=== PATIENT | female | born 1980 | race Caucasian/White ===

== ENCOUNTER 2017-09-12 09:47 | Day surgery (SDC) | payer BC ==
[~2017-09-12 09:47] MED LIST: Lactated Ringers 1,000 ML IV SCH
--- NOTE | 2017-09-12 10:04 | PCM.PREANE ---
Preanesthetic Assessment - Procedure Proposed Procedure: D & C - Anesthesia/Transfusion/Family Hx Anesthesia History: No Prior Anesthesia Family History of Anesthesia Reaction: No Transfusion History: No Prior Transfusion(s) Intubation History: Unknown - Review of Systems General: Other (obesity) Pulmonary: Other (smoker until 2012) Cardiovascular: Other Gastrointestinal: No Symptoms Neurological: No Symptoms Other: Reports: None - Physical Assessment NPO Status Date: 09/11/17 NPO Status Time: 23:00 Height: 5 ft 8 in Weight: 267 lb ASA Class: 2 Mental Status: Alert & Oriented x3 Airway Class: Mallampati = 2 Dentition: Reports: Normal Dentition Thyro-Mental Finger Breadths: 4 Mouth Opening Finger Breadths: 3 ROM/Head Extension: Full Lungs: Clear to Auscultation, Normal Respiratory Effort Cardiovascular: Regular Rate, Regular Rhythm, No Murmurs - Allergies Allergies/Adverse Reactions: Allergies Allergy/AdvReac Type Severity Reaction Status Date / Time No Known Allergies Allergy Verified 07/26/14 17:32 - Blood Blood Available: No Product(s) Available: None - Anesthesia Plan Pre-Op Medication Ordered: None - Acknowledgements Anesthesia Type Planned: General Anesthesia (LMA vs OETT) Pt an Appropriate Candidate for the Planned Anesthesia: Yes Alternatives and Risks of Anesthesia Discussed w Pt/Guardian: Yes Pt/Guardian Understands and Agrees with Anesthesia Plan: Yes PreAnesthesia Questionnaire - Past Health History Medical/Surgical History: Denies Medical/Surgical History HEENT History: Reports: Other (See Below) Other HEENT History: wears glasses Genitourinary History: Reports: Renal Calculus Other Genitourinary History: UTI 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 [No Known Home Meds] 09/11/17 [History] - CURRENT (IN HOUSE) MEDS Current Meds: Current Medications Lactated Ringer's (Ringers, Lactated) 1,000 mls @ 125 mls/hr IV ASDIRECTED [facility]
[2017-09-12] MEDS ORDERED: Sodium Chloride 0.9% 2.5 ML Syringe FLUSH PRN (10:35)
[2017-09-12] MEDS ORDERED: Sodium Chloride 0.9% 10 ML Syringe FLUSH PRN (10:35)
[2017-09-12] MEDS ORDERED: Propofol 200 MG/20 ML SDV ONE (11:24)
[2017-09-12] MEDS ORDERED: Scopolamine 1.5 MG Transdermal Patch TRDERM PRN (11:30)
[2017-09-12] MEDS ORDERED: diphenhydrAMINE 50 MG/ML SDV ONE (12:34)
[2017-09-12] MEDS ORDERED: Lidocaine 2% 5 ML SDV ONE (12:37)
[2017-09-12] MEDS ORDERED: Midazolam 1 MG/ML 2 ML SDV ONE (12:37)
[2017-09-12] MEDS ORDERED: Ondansetron 4 MG/2 ML SDV ONE (12:37)
[2017-09-12] MEDS ORDERED: fentaNYL 100 MCG/2 ML SDV ONE (12:37)
[2017-09-12] MEDS ORDERED: fentaNYL 100 MCG/2 ML SDV IVPUSH PRN (12:52)
[2017-09-12] MEDS ORDERED: Ketorolac 30 MG/ML SDV ONE (13:00)
[2017-09-12] MEDS ORDERED: Acetaminophen/oxyCODONE 325-5 MG Tab PO PRN (13:13)
--- NOTE | 2017-09-12 13:13 | PCM.OPNOTE ---
- General Post-Op/Procedure Note Date of Surgery/Procedure: 09/12/17 Operative Procedure(s): Suction dilation and curettage Findings: 7 weeks sized uterus, anteverted, mobile, no adnexal masses. Small amount of POC Pre Op Diagnosis: Missed Post-Op Diagnosis: Same Anesthesia Technique: General ET Tube Primary Surgeon: Alee Benavidez Pathology: Products of conception EBL in mLs: 50 Complications: None Condition: Good
--- NOTE | 2017-09-12 13:17 | PCM.POSTAN ---
POST ANESTHESIA ASSESSMENT - MENTAL STATUS Mental Status: Alert, Oriented - RESPIRATORY Respiratory Status: Respiratory Rate WNL, Airway Patent, O2 Saturation Stable - CARDIOVASCULAR CV Status: Pulse Rate WNL, Blood Pressure Stable - GASTROINTESTINAL GI Status: No Symptoms - POST OP HYDRATION Hydration Status: Adequate & Stable
--- NOTE | 2017-09-12 13:32 | PCM48HPAN ---
Post Anesthesia Note - EVALUATION WITHIN 48HRS OF ANESTHETIC Vital Signs in Normal Range: Yes Patient Participated in Evaluation: Yes Respiratory Function Stable: Yes Airway Patent: Yes Cardiovascular Function Stable: Yes Hydration Status Stable: Yes Pain Control Satisfactory: Yes (none reported; urge to urinate only sensed) Nausea and Vomiting Control Satisfactory: Yes Mental Status Recovered: Yes - COMMENTS/OBSERVATIONS Free Text/Narrative:: at bedside and she is asking to get dressed and go home.
[2017-09-12 14:04] VITALS: BP 115/64
--- NOTE | 2017-09-13 00:51 | OR ---
SURGEON: Alee Benavidez MD DATE OF PROCEDURE: 09/12/2017 PREOPERATIVE DIAGNOSIS: Missed / Blighted Ovum. POSTOPERATIVE DIAGNOSIS: Missed /Blighted Ovum. PROCEDURE: Suction dilatation and curettage. ANESTHESIA: General endotracheal. ESTIMATED BLOOD LOSS: 50 mL. COMPLICATIONS: None. PATHOLOGY: Products of conception. FINDINGS: Anteverted mobile uterus approximately 7 week size, no adnexal masses palpable. BRIEF HISTORY: Radha is a 37-year-old lady who has undergone ovulation induction with Clomid followed by an IUI, which resulted into , but unfortunately ended up with a blighted ovum.Management options was discussed with her by her LINA specialist,and the patient opted to have a suction D and C to be performed here in [place].I reviewed the procedure with the patient. Risks including bleeding, infection, injury to the uterus and surrounding organs , and risk of Asherman syndrome were reviewed. The patient accepted to proceed and appropriate consent was obtained. DESCRIPTION OF PROCEDURE: The patient was taken to the operating room, where induction of general anesthesia was performed without difficulty. Appropriate time-out was held. The patient was placed in dorsal lithotomy position and prepped and draped in usual sterile fashion. Examination under anesthesia revealed the above findings. A bivalved speculum was placed into the vagina and the anterior lip of the cervix was grasped with an Allis clamp. The cervical os was then serially dilated up to a Hegar size 10 and using a curved size 10 plastic cannula, suction curettage was performed with moderate amount of tissue obtained. A gentle sharp curettage was then performed with a large curette until the uterine grittiness was noted. Further suction curettage was performed to remove any blood and blood clots until the uterus was assumed empty. The Allis clamp was then removed from the cervix and the area was noted to be hemostatic. All other instruments were removed from the vagina. Sponge, instrument, and needle counts were correct. The patient tolerated the procedure well. She was taken to the recovery room in stable condition. ADRIANNA / PEYMAN /[id number] RED
== END 2017-09-12 13:50 | disposition home or self-care (01) ==
LOC: MW.SDS 09:47
PROVIDERS: ATTEND Obstetrics & Gynecology
DX: O02.1 Missed abortion (principal); E66.9 Obesity, unspecified; Z3A.01 Less than 8 weeks gestation of pregnancy; Z87.442 Personal history of urinary calculi; Z87.891 Personal history of nicotine dependence; Z87.440 Personal history of urinary (tract) infections; Z79.899 Other long term (current) drug therapy; Z68.41 Body mass index [BMI] 40.0-44.9, adult
CPT/HCPCS: 36415; 59820; 85027; 86850; 86900; 86901; A9270; J1200; J1885; J2250; J2405; J3010; J7120; 01965; 88305; J2704

== ENCOUNTER 2020-05-16 08:00 | Inpatient (IN) | payer BC ==
[2020-05-16] MEDS ORDERED: Sodium Chloride 0.9% 10 ML Syringe FLUSH PRN (10:20)
[2020-05-16] MEDS ORDERED: Citric Acid/Sodium Citrate Solution 30 ML Cup PO ONE (10:20)
[2020-05-16] MEDS ORDERED: Sodium Chloride 0.9% 2.5 ML Syringe FLUSH PRN (10:20)
[2020-05-16] MEDS ORDERED: Sodium Chloride 0.9% 10 ML SDV IV PRN (10:20)
[2020-05-16] MEDS ORDERED: Terbutaline 1 MG/ML SDV SUBCUT ONE (10:20)
[2020-05-16] MEDS ORDERED: Oxytocin/0.9 % Sodium Chloride 30 UNIT/500 ML BAG IV SCH (10:30)
[2020-05-16] MEDS: Lactated Ringers 1,000 ML IV SCH ×3 (12:00→14:54)
--- NOTE | 2020-05-16 12:51 | PCM.PREANE ---
Preanesthetic Assessment - Anesthesia/Transfusion/Family Hx Anesthesia History: Prior Anesthesia Without Reaction Family History of Anesthesia Reaction: No Transfusion History: No Prior Transfusion(s) Intubation History: Unknown - Review of Systems General: No Symptoms Pulmonary: No Symptoms Cardiovascular: No Symptoms Gastrointestinal: No Symptoms Neurological: No Symptoms Other: Reports: None - Physical Assessment Height: 5 ft 8 in Weight: 139.253 kg ASA Class: 2 Mental Status: Alert & Oriented x3 Airway Class: Mallampati = 2 Dentition: Reports: Normal Dentition Thyro-Mental Finger Breadths: 3 Mouth Opening Finger Breadths: 3 ROM/Head Extension: Full Lungs: Clear to Auscultation, Normal Respiratory Effort Cardiovascular: Regular Rate, Regular Rhythm - Lab Values: Laboratory Last Values WBC 9.40 K/uL (4.0-11.0) 05/15/20 11:40 RBC 4.43 M/uL (4.30-5.90) 05/15/20 11:40 Hgb 13.4 g/dL (12.0-16.0) 05/15/20 11:40 Hct 40.2 % (36.0-46.0) 05/15/20 11:40 MCV 90.7 fL (80.0-98.0) 05/15/20 11:40 MCH 30.2 pg (27.0-32.0) 05/15/20 11:40 MCHC 33.3 g/dL (31.0-37.0) 05/15/20 11:40 RDW Std Deviation 44.8 fl (28.0-62.0) 05/15/20 11:40 RDW Coeff of Edmar 14 % (11.0-15.0) 05/15/20 11:40 Plt Count 316 K/uL (150-400) 05/15/20 11:40 MPV 10.30 fL (7.40-12.00) 05/15/20 11:40 Neut % (Auto) 74.3 % (48.0-80.0) 05/15/20 11:40 Lymph % (Auto) 16.2 % (16.0-40.0) 05/15/20 11:40 [place] % (Auto) 8.4 % (0.0-15.0) 05/15/20 11:40 Eos % (Auto) 0.9 % (0.0-7.0) 05/15/20 11:40 Baso % (Auto) 0.2 % (0.0-1.5) 05/15/20 11:40 Neut # (Auto) 7.0 K/uL (1.4-5.7) H 05/15/20 11:40 Lymph # (Auto) 1.5 K/uL (0.6-2.4) 05/15/20 11:40 [place] # (Auto) 0.8 K/uL (0.0-0.8) 05/15/20 11:40 Eos # (Auto) 0.1 K/uL (0.0-0.7) 05/15/20 11:40 Baso # (Auto) 0.0 K/uL (0.0-0.1) 05/15/20 11:40 Nucleated RBC % 0.0 /100WBC 05/15/20 11:40 Nucleated RBCs # 0 K/uL 05/15/20 11:40 Blood Type O POSITIVE 05/15/20 11:40 Antibody Screen NEGATIVE 05/15/20 11:40 - Allergies Allergies/Adverse Reactions: Allergies Allergy/AdvReac Type Severity Reaction Status Date / Time No Known Allergies Allergy Verified 07/26/14 17:32 - Anesthesia Plan Free Text/Narrative:: External version was attempted without success. First epidural placement was re-evaluated and determined to be insufficient for conversion. Spoke with the patient regarding our options and she would like to proceed with removal and replacement of epidural for . See paper records for those details. - Acknowledgements Anesthesia Type Planned: General Anesthesia, Spinal, Epidural Pt an Appropriate Candidate for the Planned Anesthesia: Yes Alternatives and Risks of Anesthesia Discussed w Pt/Guardian: Yes Pt/Guardian Understands and Agrees with Anesthesia Plan: Yes PreAnesthesia Questionnaire - Past Health History Medical/Surgical History: Denies Medical/Surgical History HEENT History: Reports: Other (See Below) Other HEENT History: wears glasses Cardiovascular History: Reports: None Respiratory History: Reports: None Gastrointestinal History: Reports: GERD Genitourinary History: Reports: Renal Calculus Other Genitourinary History: UTI 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): Other OB/BYN History: ovarian cysts, infertility, d&C Musculoskeletal History: Reports: None Neurological History: Reports: None Psychiatric History: Reports: None Endocrine/Metabolic History: Reports: Obesity/BMI 30+ Hematologic History: Reports: None Immunologic History: Reports: None Oncologic (Cancer) History: Reports: None Dermatologic History: Reports: None - Infectious Disease History Infectious Disease History: Reports: None - Past Surgical History HEENT Surgical History: Reports: Oral Surgery Female Surgical History: Reports: D&C Endocrine Surgical History: Reports: None - SUBSTANCE USE Smoking Status *Q: Former Smoker Tobacco Use Within Last Twelve Months: Cigarettes Recreational Drug Use History: No - HOME MEDS Home Medications: Home Meds Mv-Mn/Iron/FA/Herbal/Digestive [ One Tablet] 1 each PO DAILY 08/19/18 [History] - CURRENT (IN HOUSE) MEDS Current Meds: Current Medications Oxytocin/Sodium Chloride (Oxytocin 30 Unit/500 Ml-Ns) 30 unit in 500 mls @ 250 mls/hr IV TITRATE CHINO Lactated Ringer's (Ringers, Lactated) 1,000 mls @ 500 mls/hr IV BOLUS CHINO Last Admin: 05/16/20 12:00 Dose: 500 mls/hr Documented by: Sodium Chloride (Saline Flush) 10 ml FLUSH ASDIRECTED PRN PRN Reason: Keep Vein Open Sodium Chloride (Saline Flush) 2.5 ml FLUSH ASDIRECTED PRN PRN Reason: Keep Vein Open Sodium Chloride (Normal Saline) 10 ml IV ASDIRECTED PRN PRN Reason: IV Use Discontinued Medications Citric Acid/Sodium Citrate (Bicitra Solution) 30 ml PO ONETIME ONE Stop: 05/16/20 10:21 Terbutaline Sulfate (Brethine) 0.25 mg SUBCUT ONETIME ONE Stop: 05/16/20 10:21
[2020-05-16] MEDS ORDERED: Bupivacaine 0.5% 10 ML SDV ONE (12:57)
[2020-05-16] MEDS ORDERED: Terbutaline 1 MG/ML SDV ONE (13:24)
[2020-05-16] MEDS ORDERED: Ondansetron 4 MG/2 ML SDV ONE (14:48)
[2020-05-16] MEDS ORDERED: Oxytocin 10 Units/1 ML SDV ONE (14:48)
--- NOTE | 2020-05-16 14:52 | US ---
Limited obstetrical ultrasound: Multiple real-time images were obtained. Comparison: No previous obstetrical imaging. presentation: Breech Heart rate: 155 bpm Impression: 1. Findings as noted above. Diagnostic code #1 This report was dictated in MDT
[2020-05-16] MEDS ORDERED: Citric Acid/Sodium Citrate Solution 30 ML Cup ONE (14:55)
[2020-05-16] MEDS ORDERED: ceFAZolin 1 GM Vial ONE (15:15)
[2020-05-16] MEDS ORDERED: Sodium Chloride 0.9% 20 ML ONE (15:15)
[2020-05-16] MEDS ORDERED: diphenhydrAMINE 50 MG/ML SDV IVPUSH PRN ×2 (15:54→17:29)
[2020-05-16] MEDS ORDERED: Nalbuphine 10 MG/1 ML Vial IVPUSH PRN (15:54)
[2020-05-16] MEDS ORDERED: Naloxone 0.4 MG/ML Syringe IVPUSH PRN (15:54)
[2020-05-16] MEDS ORDERED: Morphine PF 10 MG/10 ML SDV ONE (15:59)
--- NOTE | 2020-05-16 17:11 | PCM.POSTAN ---
POST ANESTHESIA ASSESSMENT - MENTAL STATUS Mental Status: Alert, Oriented - VITAL SIGNS Vital Signs: See post part. vitals - RESPIRATORY Respiratory Status: Respiratory Rate WNL, Airway Patent, O2 Saturation Stable - CARDIOVASCULAR CV Status: Pulse Rate WNL, Blood Pressure Stable - GASTROINTESTINAL GI Status: No Symptoms - POST OP HYDRATION Hydration Status: Adequate & Stable, Hypovolemic
[2020-05-16] MEDS ORDERED: Bisacodyl 10 MG Supp RECTAL PRN (17:29)
[2020-05-16] MEDS ORDERED: Ondansetron 4 MG/2 ML SDV IVPUSH PRN (17:29)
[2020-05-16] MEDS ORDERED: Misoprostol 200 MCG Tab RECTAL PRN (17:29)
[2020-05-16] MEDS ORDERED: Lanolin 100% Cream 7 GM Tube TOP PRN (17:29)
[2020-05-16] MEDS ORDERED: Acetaminophen/oxyCODONE 325-5 MG Tab PO PRN ×2 (17:29)
[2020-05-16] MEDS ORDERED: Tranexamic Acid 1,000 MG in Sodium Chloride 0.9% 100 ML IV PRN (17:29)
[2020-05-16] MEDS ORDERED: Methylergonovine 0.2 MG/1 ML Amp IM PRN (17:29)
[2020-05-16] MEDS ORDERED: Oxytocin 10 Units/1 ML SDV IM PRN (17:29)
[2020-05-16] MEDS ORDERED: Lactated Ringers 1,000 ML IV SCH (17:30)
[2020-05-16] MEDS: Ketorolac 30 MG/ML SDV IVPUSH SCH ×2 (17:51→23:41)
[2020-05-16] MEDS: Docusate Sodium 100 MG Cap PO SCH (22:32)
--- NOTE | 2020-05-17 00:28 | OR ---
SURGEON: Parish Ag MD DATE OF PROCEDURE: 05/16/2020 INDICATION FOR PROCEDURE: A 40-year-old G7, P3-0-3-3 at 38 weeks and 1 day, presenting for scheduled external cephalic version, possible section. was complicated by AMA, IUGR with abdominal circumference of less than 3rd percentile with normal umbilical artery Dopplers and breech presentation. Discussed delivery at 38 weeks due to increased risk of demise with IUGR. Offered option of external cephalic version versus primary section. The patient desired external cephalic version, was agreeable to section if unsuccessful. PREOPERATIVE DIAGNOSES: 1. Awad intrauterine at 38 weeks and 1 day. 2. Intrauterine growth restriction. 3. Complete breech presentation. POSTOPERATIVE DIAGNOSES: 1. Awad intrauterine at 38 weeks and 1 day. 2. Intrauterine growth restriction. 3. Complete breech presentation. 4. Failed external cephalic version. PROCEDURE PERFORMED: Attempted external cephalic version. Primary low-transverse section. ANESTHESIA: Epidural. ANESTHESIOLOGIST: Dr. Dickson Giraldo. FINDINGS: Fetus in complete breech presentation with head at maternal right. Multiples attempts at external cephalic version to turn baby clockwise and counter-clockwise without sufficient movement of th and e baby. Normal-appearing uterus and bladder. Female infant, scores of 8 and 9. Weight of 6 pounds and 2 ounces. DESCRIPTION OF PROCEDURE: Risk of external cephalic version was discussed with the patient including placental abruption, rupture of membranes, distress requiring emergency . The patient was agreeable to proceed. She received an epidural with adequate pain control. She received a dose of terbutaline for tocolysis. Baby was confirmed to be complete breech on bedside ultrasound. Mineral oil was applied over the patient's belly. The head was at the maternal right and the baby's back was along the maternal left. First attempted to lift the buttock out of the pelvis and turn the head clockwise with an hr assistant. Multiple trials were performed, there was a small amount of movement, but baby did not rotate to vertex. The heart rate was confirmed to be 140s between trials. Additional attempts were done to turn the baby counter-clockwise without success. Decision was made to terminate the procedure and proceed with a low-transverse section. The patient was agreeable and risks of procedure was explained to the patient including bleeding, infection, DVT, injury to surrounding organs including bladder, bowel and ureters, questions were answered and consent signed. The patient was brought to the operating room. She received 3 g of Ancef IV and pneumatic stockings. Epidural anesthesia was in place and Duncan was placed. The abdomen was prepped with chlorhexidine in sterile fashion, then draped and tested for anesthesia. Epidural was adequate. Pfannenstiel incision was made with a scalpel and dissected down to fascia. Multiple sites of bleeding were noted and cauterized. The fascia was cleared of subcutaneous tissue. The fascia was incised in the midline and extended laterally with curved Bruce scissors. Jeet clamps were placed on the superior fascial edge. The rectus muscles were by blunt dissection and using Bruce scissors. The same process was repeated on the inferior fascial edge. There was a bleeding vessel along the rectus muscle which was grasped by hemostat and cauterized. Hemostasis was confirmed. The peritoneum was identified, entered bluntly and extended bluntly. The extra-large Manuel O retractor was placed in the peritoneal cavity. The bladder was noted to be away from the site of incision. The uterus was incised transversely at the lower uterine segment using scalpel and extended bluntly. Clear amniotic fluid was noted. The 's buttocks was brought to the hysterotomy and by grasping the hips. The legs were then swept out of the hysterotomy and the body and head delivered easily afterwards by elevating the buttocks. The baby was pink, crying and moving all extremities immediately after delivery. The umbilical cord was clamped and cut after 60 seconds and no longer pulsating. The baby was handed over to awaiting nursery staff. Cord gases were obtained. The placenta was delivered with gentle traction on the umbilical cord. A clean lap was used to remove all remaining membranes from the uterine cavity. Allis clamps were used to grasp the angles and lower edge of the incision. The uterine incision was closed in 1 layer using running nonlocking suture with 0 Monocryl. There was a small area with bleeding in the middle of the incision and a [id number] was placed to achieve hemostasis. The uterus was firm. The paracolic gutters were cleared of any clots and irrigated. The incision was checked for hemostasis. The peritoneum was grasped by hemostats and closed using 2-0 Vicryl in running fashion. The rectus muscle was carefully examined and confirmed to be hemostatic. The fascia was closed using two 0 Vicryl suture in running fashion. Subcutaneous tissue was irrigated and no bleeding areas were noted. The subcutaneous layer was brought together in 2 layers with 2-0 plain due to large amount of adipose tissue. The skin was closed in subcuticular fashion using 3-0 Monocryl on a Ramiro needle. A silver dressing was placed over the incision and a DONAL negative pressure dressing was placed on top. She tolerated the procedure well and was transferred to the recovery room in stable condition. Postop care instructions were reviewed with her. FAHAD MORLEY /[id number] RED
[2020-05-17] MEDS: Ketorolac 30 MG/ML SDV IVPUSH SCH ×3 (06:20→19:45)
--- NOTE | 2020-05-17 08:01 | PCM48HPAN ---
Post Anesthesia Note - EVALUATION WITHIN 48HRS OF ANESTHETIC Vital Signs in Normal Range: Yes Patient Participated in Evaluation: Yes Respiratory Function Stable: Yes Airway Patent: Yes Cardiovascular Function Stable: Yes Hydration Status Stable: Yes Pain Control Satisfactory: Yes Nausea and Vomiting Control Satisfactory: Yes Mental Status Recovered: Yes Vital Signs: Last Vital Signs Temp 35.8 C L 05/17/20 04:00 Pulse 87 05/17/20 07:00 Resp 17 05/17/20 07:00 BP 119/73 05/17/20 04:00 Pulse Ox 98 05/17/20 07:00
--- NOTE | 2020-05-17 08:24 | PCM.PNPP ---
<Prakash Whitaker - Last Filed: 05/17/20 08:17> - General Info Date of Service: 05/17/20 Admission Dx/Problem (Free Text): S/P LCTD Subjective Update: Pt doing very well today. Pain and bleeding are minimal. She has not yet voided urine as her vu was just recently removed. She is ambulating without difficulty. Tolerating oral intake with no nausea or vomiting. is going well. Functional Status: Reports: Pain Controlled - Review of Systems General: Reports: No Symptoms HEENT: Reports: No Symptoms Pulmonary: Reports: No Symptoms Cardiovascular: Reports: No Symptoms Gastrointestinal: Reports: Abdominal Pain. Denies: Diarrhea, Nausea, Vomiting Genitourinary: Reports: No Symptoms Musculoskeletal: Reports: No Symptoms Skin: Reports: No Symptoms Neurological: Reports: No Symptoms Psychiatric: Reports: No Symptoms - General Info Date of Service: 05/17/20 - Patient Data Vital Signs - Most Recent: Last Vital Signs Temp 96.5 F L 05/17/20 04:00 Pulse 87 05/17/20 07:00 Resp 17 05/17/20 07:00 BP 119/73 05/17/20 04:00 Pulse Ox 98 05/17/20 07:00 Weight - Most Recent: 307 lb I&O - Last 24 Hours: Intake & Output 05/16/20 05/17/20 05/17/20 22:59 06:59 14:59 Intake Total 995 Output Total 1300 Balance -305 Lab Results - Last 24 Hours: Laboratory Results - last 24 hr 05/17/20 Range/Units 05:21 Hgb 11.8 L (12.0-16.0) g/dL Hct 36.3 (36.0-46.0) % Med Orders - Current: Current Medications Bisacodyl (Dulcolax) 10 mg RECTAL ONETIME PRN PRN Reason: Constipation Diphenhydramine HCl (Benadryl) 25 mg IVPUSH Q4H PRN PRN Reason: Itching Stop: 05/17/20 15:55 Diphenhydramine HCl (Benadryl) 25 mg IVPUSH Q6H PRN PRN Reason: Itching or Nausea Docusate Sodium (Colace) 100 mg PO BID [place] Last Admin: 05/16/20 22:32 Dose: 100 mg Documented by: Emollient Ointment (Lansinoh Hpa) 0 gm TOP ASDIRECTED PRN PRN Reason: Sore Nipples Oxytocin/Sodium Chloride (Oxytocin 30 Unit/500 Ml-Ns) 30 unit in 500 mls @ 250 mls/hr IV TITRATE [facility] Lactated Ringer's (Ringers, Lactated) 1,000 mls @ 500 mls/hr IV BOLUS [facility] Last Admin: 05/16/20 14:54 Dose: 500 mls/hr Documented by: Lactated Ringer's (Ringers, Lactated) 1,000 mls @ 125 mls/hr IV ASDIRECTED [facility] Last Admin: 05/16/20 19:56 Dose: 125 mls/hr Documented by: Tranexamic Acid 1,000 mg/ (Sodium Chloride) 110 mls @ 660 mls/hr IV ONETIME PRN PRN Reason: Bleeding Ibuprofen (Motrin) 800 mg PO Q8H PRN PRN Reason: mild pain or fever Ketorolac Tromethamine (Toradol) 30 mg IVPUSH Q6H [facility] Stop: 05/17/20 17:31 Last Admin: 05/17/20 06:20 Dose: 30 mg Documented by: Methylergonovine Maleate (Methergine) 0.2 mg IM ONETIME PRN PRN Reason: Excessive Vaginal Bleeding Misoprostol (Cytotec) 1,000 mcg RECTAL ONETIME PRN PRN Reason: excessive bleeding Nalbuphine HCl (Nubain) 5 mg IVPUSH Q3H PRN PRN Reason: Pruritis Stop: 05/17/20 15:55 Naloxone HCl (Narcan) 0.1 mg IVPUSH ONETIME PRN PRN Reason: Respiratory Depression Stop: 05/17/20 15:56 Ondansetron HCl (Zofran) 4 mg IVPUSH Q4H PRN PRN Reason: Nausea/Vomiting Oxycodone/Acetaminophen (Percocet 325-5 Mg) 1 tab PO Q4H PRN PRN Reason: Pain (moderate 4-6) Oxycodone/Acetaminophen (Percocet 325-5 Mg) 2 tab PO Q4H PRN PRN Reason: Pain (moderate 4-6) Oxytocin (Pitocin) 10 unit IM ASDIRECTED PRN PRN Reason: Excessive Vaginal Bleeding Sodium Chloride (Saline Flush) 10 ml FLUSH ASDIRECTED PRN PRN Reason: Keep Vein Open Sodium Chloride (Saline Flush) 2.5 ml FLUSH ASDIRECTED PRN PRN Reason: Keep Vein Open Sodium Chloride (Normal Saline) 10 ml IV ASDIRECTED PRN PRN Reason: IV Use Discontinued Medications Bupivacaine HCl (Sensorcaine-Mpf 0.5%) Confirm Administered Dose 20 ml .ROUTE .STK-MED ONE Stop: 05/16/20 12:58 Last Admin: 05/16/20 19:26 Dose: Not Given Documented by: Cefazolin Sodium (Ancef) Confirm Administered Dose 3 gm .ROUTE .STK-MED ONE Stop: 05/16/20 15:16 Citric Acid/Sodium Citrate (Bicitra Solution) 30 ml PO ONETIME ONE Stop: 05/16/20 10:21 Last Admin: 05/16/20 14:56 Dose: 30 ml Documented by: Citric Acid/Sodium Citrate (Bicitra Solution) Confirm Administered Dose 30 ml .ROUTE .STK-MED ONE Stop: 05/16/20 14:56 Last Admin: 05/16/20 19:26 Dose: Not Given Documented by: Sodium Chloride (Normal Saline) Confirm Administered Dose 20 mls @ as directed .ROUTE .STK-MED ONE Stop: 05/16/20 15:16 Morphine Sulfate (Duramorph Pf) Confirm Administered Dose 10 mg .ROUTE .STK-MED ONE Stop: 05/16/20 16:00 Ondansetron HCl (Zofran) Confirm Administered Dose 4 mg .ROUTE .STK-MED ONE Stop: 05/16/20 14:49 Oxytocin (Pitocin) Confirm Administered Dose 30 unit .ROUTE .STK-MED ONE Stop: 05/16/20 14:49 Terbutaline Sulfate (Brethine) 0.25 mg SUBCUT ONETIME ONE Stop: 05/16/20 10:21 Last Admin: 05/16/20 13:25 Dose: 0.25 mg Documented by: Terbutaline Sulfate (Brethine) Confirm Administered Dose 1 mg .ROUTE .STK-MED ONE Stop: 05/16/20 13:25 Last Admin: 05/16/20 19:26 Dose: Not Given Documented by: - Interaction Support Person: - Recovery Exam Fundal Tone: Firm Fundal Level: At Umbilicus Fundal Placement: Midline Lochia Amount: Scant Lochia Color: Rubra/Red Perineum Description: Intact, Minimal Bruising/Swelling Episiotomy/Laceration: None Bladder Status: Indwelling Catheter in Place Urinary Elimination: Indwelling Catheter - Exam General: Alert, Oriented, No Acute Distress HEENT: Pupils Equal, Pupils Reactive, EOMI Neck: Supple, Trachea Midline, No JVD Lungs: Clear to Auscultation, Normal Respiratory Effort. No: Crackles, Rales, Rhonchi, Rub Cardiovascular: Regular Rate, Regular Rhythm, No Murmurs GI/Abdominal Exam: Normal Bowel Sounds, Soft, Non-Tender Extremities: Normal Inspection, Non-Tender, No Pedal Edema Skin: Warm, Dry, Intact Wound/Incisions: Dressing Dry and Intact Neurological: No New Focal Deficit, Normal Gait, Normal Speech, Normal Tone Psy/Mental Status: Alert, Normal Affect, Normal Mood - Problem List & Annotations (1) Status post SNOMED Code(s): 658508513, [id number] Code(s): Z98.891 - HISTORY OF UTERINE SCAR FROM PREVIOUS SURGERY Status: Acute Current Visit: Yes - Problem List Review Problem List Initiated/Reviewed/Updated: Yes - Assessment Assessment:: 40 yo s/p LTCD for breech presentation. no complications - Plan Plan:: Routine care encourage D/C tomorrow. <Parish Ag - Last Filed: 05/17/20 10:42> - Patient Data Vital Signs - Most Recent: Last Vital Signs Temp 35.8 C L 05/17/20 04:00 Pulse 92 05/17/20 09:00 Resp 17 05/17/20 07:00 BP 119/73 05/17/20 04:00 Pulse Ox 98 05/17/20 09:00 I&O - Last 24 Hours: Intake & Output 05/16/20 05/17/20 05/17/20 22:59 06:59 14:59 Intake Total 995 Output Total 1300 Balance -305 Lab Results - Last 24 Hours: Laboratory Results - last 24 hr 05/17/20 Range/Units 05:21 Hgb 11.8 L (12.0-16.0) g/dL Hct 36.3 (36.0-46.0) % Med Orders - Current: Current Medications Bisacodyl (Dulcolax) 10 mg RECTAL ONETIME PRN PRN Reason: Constipation Diphenhydramine HCl (Benadryl) 25 mg IVPUSH Q4H PRN PRN Reason: Itching Stop: 05/17/20 15:55 Diphenhydramine HCl (Benadryl) 25 mg IVPUSH Q6H PRN PRN Reason: Itching or Nausea Docusate Sodium (Colace) 100 mg PO BID [facility] Last Admin: 05/17/20 09:13 Dose: 100 mg Documented by: Emollient Ointment (Lansinoh Hpa) 0 gm TOP ASDIRECTED PRN PRN Reason: Sore Nipples Oxytocin/Sodium Chloride (Oxytocin 30 Unit/500 Ml-Ns) 30 unit in 500 mls @ 250 mls/hr IV TITRATE [facility] Lactated Ringer's (Ringers, Lactated) 1,000 mls @ 500 mls/hr IV BOLUS [facility] Last Admin: 05/16/20 14:54 Dose: 500 mls/hr Documented by: Lactated Ringer's (Ringers, Lactated) 1,000 mls @ 125 mls/hr IV ASDIRECTED [facility] Last Admin: 05/16/20 19:56 Dose: 125 mls/hr Documented by: Tranexamic Acid 1,000 mg/ (Sodium Chloride) 110 mls @ 660 mls/hr IV ONETIME PRN PRN Reason: Bleeding Ibuprofen (Motrin) 800 mg PO Q8H PRN PRN Reason: mild pain or fever Ketorolac Tromethamine (Toradol) 30 mg IVPUSH Q6H [facility] Stop: 05/17/20 17:31 Last Admin: 05/17/20 06:20 Dose: 30 mg Documented by: Methylergonovine Maleate (Methergine) 0.2 mg IM ONETIME PRN PRN Reason: Excessive Vaginal Bleeding Misoprostol (Cytotec) 1,000 mcg RECTAL ONETIME PRN PRN Reason: excessive bleeding Nalbuphine HCl (Nubain) 5 mg IVPUSH Q3H PRN PRN Reason: Pruritis Stop: 05/17/20 15:55 Naloxone HCl (Narcan) 0.1 mg IVPUSH ONETIME PRN PRN Reason: Respiratory Depression Stop: 05/17/20 15:56 Ondansetron HCl (Zofran) 4 mg IVPUSH Q4H PRN PRN Reason: Nausea/Vomiting Oxycodone/Acetaminophen (Percocet 325-5 Mg) 1 tab PO Q4H PRN PRN Reason: Pain (moderate 4-6) Oxycodone/Acetaminophen (Percocet 325-5 Mg) 2 tab PO Q4H PRN PRN Reason: Pain (moderate 4-6) Oxytocin (Pitocin) 10 unit IM ASDIRECTED PRN PRN Reason: Excessive Vaginal Bleeding Sodium Chloride (Saline Flush) 10 ml FLUSH ASDIRECTED PRN PRN Reason: Keep Vein Open Sodium Chloride (Saline Flush) 2.5 ml FLUSH ASDIRECTED PRN PRN Reason: Keep Vein Open Sodium Chloride (Normal Saline) 10 ml IV ASDIRECTED PRN PRN Reason: IV Use Discontinued Medications Bupivacaine HCl (Sensorcaine-Mpf 0.5%) Confirm Administered Dose 20 ml .ROUTE .STK-MED ONE Stop: 05/16/20 12:58 Last Admin: 05/16/20 19:26 Dose: Not Given Documented by: Cefazolin Sodium (Ancef) Confirm Administered Dose 3 gm .ROUTE .STK-MED ONE Stop: 05/16/20 15:16 Citric Acid/Sodium Citrate (Bicitra Solution) 30 ml PO ONETIME ONE Stop: 05/16/20 10:21 Last Admin: 05/16/20 14:56 Dose: 30 ml Documented by: Citric Acid/Sodium Citrate (Bicitra Solution) Confirm Administered Dose 30 ml .ROUTE .STK-MED ONE Stop: 05/16/20 14:56 Last Admin: 05/16/20 19:26 Dose: Not Given Documented by: Sodium Chloride (Normal Saline) Confirm Administered Dose 20 mls @ as directed .ROUTE .STK-MED ONE Stop: 05/16/20 15:16 Morphine Sulfate (Duramorph Pf) Confirm Administered Dose 10 mg .ROUTE .STK-MED ONE Stop: 05/16/20 16:00 Ondansetron HCl (Zofran) Confirm Administered Dose 4 mg .ROUTE .STK-MED ONE Stop: 05/16/20 14:49 Oxytocin (Pitocin) Confirm Administered Dose 30 unit .ROUTE .STK-MED ONE Stop: 05/16/20 14:49 Terbutaline Sulfate (Brethine) 0.25 mg SUBCUT ONETIME ONE Stop: 05/16/20 10:21 Last Admin: 05/16/20 13:25 Dose: 0.25 mg Documented by: Terbutaline Sulfate (Brethine) Confirm Administered Dose 1 mg .ROUTE .STK-MED ONE Stop: 05/16/20 13:25 Last Admin: 05/16/20 19:26 Dose: Not Given Documented by: - My Orders Last 24 Hours: My Active Orders 05/16/20 10:20 Sodium Chloride 0.9% [Normal Saline] 10 ml IV ASDIRECTED PRN Sodium Chloride 0.9% [Saline Flush] 10 ml FLUSH ASDIRECTED PRN Sodium Chloride 0.9% [Saline Flush] 2.5 ml FLUSH ASDIRECTED PRN Resuscitation Status Routine 05/16/20 10:21 RPR (SYPHILIS SERO) W/ RFLX [REF] Routine Peripheral IV Insertion Adult [OM.PC] Routine Schedule Procedure [COMM] Per Unit Routine 05/16/20 10:30 Lactated Ringers [Ringers, Lactated] 1,000 ml IV BOLUS Oxytocin/0.9 % Sodium Chloride [Oxytocin 30 Unit/500 ML-NS] 30 unit in 500 ml IV TITRATE 05/16/20 Dinner Regular Diet [DIET] 05/16/20 17:29 Intake and Output [RC] Q4H Notify Provider Intake and Out [RC] ASDIRECTED Notify Provider Vital Signs [RC] ASDIRECTED Acetaminophen/oxyCODONE [Percocet 325-5 MG] 1 tab PO Q4H PRN Acetaminophen/oxyCODONE [Percocet 325-5 MG] 2 tab PO Q4H PRN Lanolin [Lansinoh HPA] See Dose Instructions TOP ASDIRECTED PRN Methylergonovine [Methergine] 0.2 mg IM ONETIME PRN Ondansetron [Zofran] 4 mg IVPUSH Q4H PRN Oxytocin [Pitocin] 10 unit IM ASDIRECTED PRN Tranexamic Acid [Cyklokapron] 1,000 mg Sodium Chloride 0.9% [Normal Saline] 100 ml IV ONETIME bisacodyL [Dulcolax] 10 mg RECTAL ONETIME PRN diphenhydrAMINE [Benadryl] 25 mg IVPUSH Q6H PRN miSOPROStoL [Cytotec] 1,000 mcg RECTAL ONETIME PRN 05/16/20 17:30 Patient Status [ADT] Routine Ambulate [RC] PER UNIT ROUTINE Antiembolic Devices [RC] PER UNIT ROUTINE Communication Order [RC] PER UNIT ROUTINE Communication Order [RC] PER UNIT ROUTINE Communication Order [RC] Per Unit Routine May Shower [RC] ASDIRECTED RT Incentive Spirometry [RC] Q2HWA Vital Signs [RC] PER UNIT ROUTINE Ketorolac [Toradol] 30 mg IVPUSH Q6H Lactated Ringers [Ringers, Lactated] 1,000 ml IV ASDIRECTED Assess Lochia [WOMSER] Per Unit Routine Assess Uterine Involution [WOMSER] Per Unit Routine Breast Pump [WOMSER] Per Unit Routine Peripheral IV Discontinue [OM.PC] Routine Sequential Compression Device [OM.PC] Per Unit Routine 05/16/20 17:31 Abdominal Binder [OM.PC] Per Unit Routine 05/16/20 21:00 Docusate Sodium [Colace] 100 mg PO BID 05/17/20 23:30 Ibuprofen [Motrin] 800 mg PO Q8H PRN - Plan Plan:: Patient seen, recovering well postop. Reviewed postop care. Plan for DC home tomorrow.
[2020-05-17] MEDS: Docusate Sodium 100 MG Cap PO SCH ×2 (09:13→21:08)
[2020-05-17] MEDS ORDERED: Measles, Mumps & Rubella Vaccine 0.5 ML SDV SUBCUT ONE (11:31)
[2020-05-17] MEDS ORDERED: Ibuprofen 800 MG Tab PO PRN (23:30)
--- NOTE | 2020-05-18 06:46 | PCM.PNPP ---
- General Info Date of Service: 05/18/20 Functional Status: Reports: Pain Controlled, Tolerating Diet, Ambulating, Urinating - Review of Systems General: Reports: No Symptoms HEENT: Reports: No Symptoms Pulmonary: Reports: No Symptoms Cardiovascular: Reports: No Symptoms Gastrointestinal: Reports: No Symptoms Genitourinary: Reports: No Symptoms Musculoskeletal: Reports: No Symptoms Skin: Reports: No Symptoms Neurological: Reports: No Symptoms Psychiatric: Reports: No Symptoms - Patient Data Vital Signs - Most Recent: Last Vital Signs Temp 36.9 C 05/18/20 04:20 Pulse 89 05/18/20 04:20 Resp 17 05/18/20 04:20 BP 115/74 05/18/20 04:20 Pulse Ox 96 05/18/20 04:20 Weight - Most Recent: 307 lb I&O - Last 24 Hours: Intake & Output 05/17/20 05/17/20 05/18/20 14:59 22:59 06:59 Output Total 500 Balance -500 Med Orders - Current: Current Medications Bisacodyl (Dulcolax) 10 mg RECTAL ONETIME PRN PRN Reason: Constipation Diphenhydramine HCl (Benadryl) 25 mg IVPUSH Q6H PRN PRN Reason: Itching or Nausea Docusate Sodium (Colace) 100 mg PO BID ON LICENSE OF [facility] Last Admin: 05/17/20 21:08 Dose: 100 mg Documented by: Emollient Ointment (Lansinoh Hpa) 0 gm TOP ASDIRECTED PRN PRN Reason: Sore Nipples Oxytocin/Sodium Chloride (Oxytocin 30 Unit/500 Ml-Ns) 30 unit in 500 mls @ 250 mls/hr IV TITRATE ON LICENSE OF [facility] Lactated Ringer's (Ringers, Lactated) 1,000 mls @ 500 mls/hr IV BOLUS ON LICENSE OF [facility] Last Admin: 05/16/20 14:54 Dose: 500 mls/hr Documented by: Lactated Ringer's (Ringers, Lactated) 1,000 mls @ 125 mls/hr IV ASDIRECTED ON LICENSE OF [facility] Last Admin: 05/16/20 19:56 Dose: 125 mls/hr Documented by: Tranexamic Acid 1,000 mg/ (Sodium Chloride) 110 mls @ 660 mls/hr IV ONETIME PRN PRN Reason: Bleeding Ibuprofen (Motrin) 800 mg PO Q8H PRN PRN Reason: mild pain or fever Last Admin: 05/18/20 02:43 Dose: 800 mg Documented by: Methylergonovine Maleate (Methergine) 0.2 mg IM ONETIME PRN PRN Reason: Excessive Vaginal Bleeding Misoprostol (Cytotec) 1,000 mcg RECTAL ONETIME PRN PRN Reason: excessive bleeding Ondansetron HCl (Zofran) 4 mg IVPUSH Q4H PRN PRN Reason: Nausea/Vomiting Oxycodone/Acetaminophen (Percocet 325-5 Mg) 1 tab PO Q4H PRN PRN Reason: Pain (moderate 4-6) Oxycodone/Acetaminophen (Percocet 325-5 Mg) 2 tab PO Q4H PRN PRN Reason: Pain (moderate 4-6) Last Admin: 05/17/20 16:53 Dose: 2 tab Documented by: Oxytocin (Pitocin) 10 unit IM ASDIRECTED PRN PRN Reason: Excessive Vaginal Bleeding Sodium Chloride (Saline Flush) 10 ml FLUSH ASDIRECTED PRN PRN Reason: Keep Vein Open Sodium Chloride (Saline Flush) 2.5 ml FLUSH ASDIRECTED PRN PRN Reason: Keep Vein Open Sodium Chloride (Normal Saline) 10 ml IV ASDIRECTED PRN PRN Reason: IV Use Discontinued Medications Bupivacaine HCl (Sensorcaine-Mpf 0.5%) Confirm Administered Dose 20 ml .ROUTE .STK-MED ONE Stop: 05/16/20 12:58 Last Admin: 05/16/20 19:26 Dose: Not Given Documented by: Cefazolin Sodium (Ancef) Confirm Administered Dose 3 gm .ROUTE .STK-MED ONE Stop: 05/16/20 15:16 Citric Acid/Sodium Citrate (Bicitra Solution) 30 ml PO ONETIME ONE Stop: 05/16/20 10:21 Last Admin: 05/16/20 14:56 Dose: 30 ml Documented by: Citric Acid/Sodium Citrate (Bicitra Solution) Confirm Administered Dose 30 ml .ROUTE .STK-MED ONE Stop: 05/16/20 14:56 Last Admin: 05/16/20 19:26 Dose: Not Given Documented by: Diphenhydramine HCl (Benadryl) 25 mg IVPUSH Q4H PRN PRN Reason: Itching Stop: 05/17/20 15:55 Sodium Chloride (Normal Saline) Confirm Administered Dose 20 mls @ as directed .ROUTE .STK-MED ONE Stop: 05/16/20 15:16 Ketorolac Tromethamine (Toradol) 30 mg IVPUSH Q6H [facility] Stop: 05/17/20 17:31 Last Admin: 05/17/20 19:45 Dose: 30 mg Documented by: Measles/Mumps/Rubella Vaccine Live (M-M-R Ii Vaccine) 0.5 ml SUBCUT .ONCE ONE Stop: 05/17/20 11:32 Morphine Sulfate (Duramorph Pf) Confirm Administered Dose 10 mg .ROUTE .STK-MED ONE Stop: 05/16/20 16:00 Nalbuphine HCl (Nubain) 5 mg IVPUSH Q3H PRN PRN Reason: Pruritis Stop: 05/17/20 15:55 Naloxone HCl (Narcan) 0.1 mg IVPUSH ONETIME PRN PRN Reason: Respiratory Depression Stop: 05/17/20 15:56 Ondansetron HCl (Zofran) Confirm Administered Dose 4 mg .ROUTE .STK-MED ONE Stop: 05/16/20 14:49 Oxytocin (Pitocin) Confirm Administered Dose 30 unit .ROUTE .STK-MED ONE Stop: 05/16/20 14:49 Terbutaline Sulfate (Brethine) 0.25 mg SUBCUT ONETIME ONE Stop: 05/16/20 10:21 Last Admin: 05/16/20 13:25 Dose: 0.25 mg Documented by: Terbutaline Sulfate (Brethine) Confirm Administered Dose 1 mg .ROUTE .STK-MED ONE Stop: 05/16/20 13:25 Last Admin: 05/16/20 19:26 Dose: Not Given Documented by: - Interaction Support Person: - Recovery Exam Fundal Tone: Firm Fundal Level: 1 Fingerbreadths Below Umbilicus Fundal Placement: Midline Lochia Amount: Scant Lochia Color: Rubra/Red Perineum Description: Intact, Minimal Bruising/Swelling Episiotomy/Laceration: None Bladder Status: Voiding Urinary Elimination: Voided - Exam General: Alert, Oriented, Cooperative, No Acute Distress HEENT: Pupils Equal, Pupils Reactive Neck: Supple, Trachea Midline, No JVD Lungs: Normal Respiratory Effort GI/Abdominal Exam: Normal Bowel Sounds, Soft, No Distention Extremities: Normal Inspection, Normal Range of Motion, Non-Tender, No Pedal Edema Skin: Warm, Dry, Intact Wound/Incisions: Dressing Dry and Intact Neurological: No New Focal Deficit Psy/Mental Status: Alert, Normal Affect, Normal Mood - Problem List Review Problem List Initiated/Reviewed/Updated: Yes - My Orders Last 24 Hours: My Active Orders 05/17/20 11:31 Vaccines to be Administered [RC] PER UNIT ROUTINE 05/17/20 23:30 Ibuprofen [Motrin] 800 mg PO Q8H PRN 05/18/20 06:44 Ready for Discharge [RC] PER UNIT ROUTINE - Assessment Assessment:: 40 yo POD2 s/p LTCD for breech presentation. no complications - Plan Plan:: Recovering well postop. Hgb stable, minimal bleeding. + flatus, resumed bowel function Pain controlled. Reviewed postop care. Plan for DC home today.
[2020-05-18] MEDS: Docusate Sodium 100 MG Cap PO SCH (09:01)
[2020-05-18 11:23] VITALS: BP 110/73; PULSE 84
== END 2020-05-18 11:28 | disposition home or self-care (01) | DRG 540 ==
LOC: MW.OB 10:04 → OBSVTOIN 10:20 → MW.OB 10:20
PROVIDERS: ADMIT Obstetrics & Gynecology; ATTEND Obstetrics & Gynecology
PROC: 10D00Z1 Extraction of Products of Conception, Low, Open Approach (ICD-10-PCS; principal; 2020-05-16)
PROC: 3E0R3BZ Introduction of Anesthetic Agent into Spinal Canal, Percutaneous Approach (ICD-10-PCS; 2020-05-16)
PROC: 00HU33Z Insertion of Infusion Device into Spinal Canal, Percutaneous Approach (ICD-10-PCS; 2020-05-16)
PROC: 3E0234Z Introduction of Serum, Toxoid and Vaccine into Muscle, Percutaneous Approach (ICD-10-PCS; 2020-05-18)
DX: O36.5930 Maternal care for other known or suspected poor fetal growth, third trimester, not applicable or unspecified (principal); O32.1XX0 Maternal care for breech presentation, not applicable or unspecified; O62.1 Secondary uterine inertia; Z3A.38 38 weeks gestation of pregnancy; Z37.0 Single live birth; Z23 Encounter for immunization
CPT/HCPCS: 01967; 01968; 36415; 51702; 59025; 76815; 76815-26; 85014; 85018; 85025; 86592; 86593; 86850; 86900; 86901; 88307; 90471; 90707; A9270-GY; G0010; J0690; J1885; J2270; J2405; J2590; J3105; J7120

== ENCOUNTER 2023-12-18 10:43 | Emergency (ER) | payer BC ==
[2023-12-18 12:18] VITALS: BP 133/85; PULSE 108
== END 2023-12-18 12:18 | disposition home or self-care (01) ==
LOC: MW.ED 10:43
DX: M25.511 Pain in right shoulder (principal); I10 Essential (primary) hypertension
CPT/HCPCS: 73030-26-RT; 73030-RT; 99283